=== PATIENT | male | born 1935 | race Caucasian/White ===

== ENCOUNTER 2018-01-21 02:50 | Inpatient (IN) | payer MEDICARE, OTHER ==
[~2018-01-21] VITALS: Ht 175.3 cm; Wt 121.6 kg
[2018-01-21] MEDS ORDERED: ONDANSETRON 2MG/ML, 2ML IVPush ONE (03:00)
[2018-01-21] MEDS ORDERED: MORPHINE SULFATE 4 MG/ML, 1ML IVPush PRN (03:00)
[2018-01-21] MEDS ORDERED: MORPHINE SULFATE 4 MG/ML, 1ML ONE ×2 (03:10→05:22)
[2018-01-21] MEDS ORDERED: ONDANSETRON 2MG/ML, 2ML ONE (03:10)
[2018-01-21 03:18] LABS: BASOPHILS # (AUTO) 0.01 x10^3/uL (0-0.1); BASOPHILS % (AUTO) 0 % (0-1); EOSINOPHILS # (AUTO) 0.06 x10^3/uL (0-0.4); EOSINOPHILS % (AUTO) 1 % (1-7); LYMPHOCYTES # (AUTO) 1.15 x10^3/uL (1-3.4); LYMPHOCYTES % (AUTO) 12 % (22-44); MD NO; MEAN CORPUSCULAR HGB CONC 33.7 g/dL (33.2-36.2); MONOCYTES # (AUTO) 0.64 x10^3/uL (0.2-0.8); MONOCYTES % (AUTO) 7 % (2-9); NEUTROPHILS # (AUTO) 7.76 x10^3/uL (1.8-6.8); NEUTROPHILS % (AUTO) 81 % (42-75); PLATELET COUNT 199 x10^3/uL (130-400); RED CELL DISTRIBUTION WIDTH 13.9 % (9.4-14.8)
[2018-01-21 03:28] LABS: ALBUMIN 3.5 g/dL (3.4-5.0); ANION GAP 10 mmol/L (5-15); CALCIUM 8.5 mg/dL (8.5-10.1); CHLORIDE 108 mmol/L (98-107); CREATININE 1.45 mg/dL (0.7-1.3)
[2018-01-21 03:40] LABS: TROPONIN I 0.067 ng/mL (0.000-0.045)
[2018-01-21] MEDS ORDERED: TERAZOSIN PO (05:21)
[2018-01-21] MEDS ORDERED: LASIX PO (05:21)
[2018-01-21] MEDS ORDERED: SIMVASTATIN PO (05:21)
[2018-01-21] MEDS ORDERED: ATENOLOL PO (05:21)
[2018-01-21] MEDS ORDERED: LOSARTAN PO (05:21)
[2018-01-21] MEDS ORDERED: ASPI-496 PO (05:21)
[2018-01-21] MEDS ORDERED: OXYcodone/APAP 5/325MG TABLET PO PRN (05:30)
[2018-01-21] MEDS ORDERED: ONDANSETRON ODT 4 MG PO PRN (05:30)
[2018-01-21] MEDS ORDERED: ACETAMINOPHEN 325 MG TABLET PO PRN (05:30)
[2018-01-21] MEDS ORDERED: MORPHINE SULFATE 4 MG/ML, 1ML IVPush ONE (05:30)
[2018-01-21] MEDS ORDERED: BISACODYL 10 MG SUPP PR PRN (05:30)
[2018-01-21] MEDS ORDERED: hydrALAzine 20 MG/ML, 1ML IVPush PRN (05:30)
[2018-01-21] MEDS ORDERED: morphine SULFATE 10 MG/ML, 1ML IVPush PRN (05:30)
[2018-01-21] MEDS ORDERED: PROMETHAZINE 25 MG/ML, 1ML IM PRN (05:30)
[2018-01-21] MEDS ORDERED: SODIUM CHLORIDE 0.9% 1,000 ML IV SCH (05:30)
[2018-01-21] MEDS ORDERED: LABETALOL 5MG/ML, 20ML IVPush PRN ×2 (05:30)
[2018-01-21] MEDS ORDERED: METHOCARBAMOL 750 MG TABLET PO PRN (05:30)
[2018-01-21] MEDS ORDERED: DOCUSATE 100 MG CAPSULE PO PRN (05:30)
[2018-01-21] MEDS ORDERED: ONDANSETRON 2MG/ML, 2ML IVPush PRN (05:30)
[2018-01-21] MEDS ORDERED: POLYETHYLENE GLYCOL 17 GM PACKET PO PRN (05:30)
[2018-01-21] MEDS ORDERED: METHOCARBAMOL 1,000 MG in DEXTROSE 5% 100 ML IV ONE (06:00)
[2018-01-21] MEDS: GABAPENTIN 100 MG CAPSULE PO SCH ×4 (06:00→21:16)
[2018-01-21] MEDS ORDERED: METOPROLOL 1 MG/ML, 5ML IVPush PRN (06:00)
[2018-01-21 06:16] VITALS: BP 168/76
[2018-01-21 06:25] LABS: FREE T4 (FREE THYROXINE) 0.88 ng/dL (0.76-1.46); HEMOGLOBIN A1C 5.9 % (4.2-6.3); THYROID STIMULATING HORMONE 2.93 mIU/L (0.358-3.740)
[2018-01-21 07:50] VITALS: BP 149/76
[2018-01-21 08:04] LABS: TROPONIN I 0.059 ng/mL (0.000-0.045)
[2018-01-21] MEDS: FAMOTIDINE 20 MG/2 ML IVPush SCH ×2 (11:02→21:16)
[2018-01-21 11:39] LABS: MICROSCOPIC NOT IND
[2018-01-21 11:48] LABS: CULTURE INDICATED? NO
[2018-01-21 12:54] VITALS: BP 139/70
[2018-01-21 14:40] LABS: TROPONIN I 0.065 ng/mL (0.000-0.045)
[2018-01-21 15:09] LABS: INTERNATIONAL NORMALIZED RATIO 1.07 (0.93-1.1)
[2018-01-21 20:16] VITALS: BP 119/63
[2018-01-22 03:48] VITALS: BP 122/62
[2018-01-22 05:43] LABS: BASOPHILS # (AUTO) 0.02 x10^3/uL (0-0.1); BASOPHILS % (AUTO) 0 % (0-1); EOSINOPHILS # (AUTO) 0.07 x10^3/uL (0-0.4); EOSINOPHILS % (AUTO) 1 % (1-7); LYMPHOCYTES % (AUTO) 7 % (22-44); MD NO; MEAN CORPUSCULAR HEMOGLOBIN 28.5 pg (27.5-34.5); MEAN CORPUSCULAR HGB CONC 33.1 g/dL (33.2-36.2); MEAN CORPUSCULAR VOLUME 86.2 fL (81-97); MEAN PLATELET VOLUME 9.1 fL (7.4-10.4); MONOCYTES # (AUTO) 0.57 x10^3/uL (0.2-0.8); MONOCYTES % (AUTO) 8 % (2-9); NEUTROPHILS # (AUTO) 5.64 x10^3/uL (1.8-6.8); NEUTROPHILS % (AUTO) 83 % (42-75); PLATELET COUNT 181 x10^3/uL (130-400); RED BLOOD COUNT 3.92 x10^6/uL (4.38-5.82); RED CELL DISTRIBUTION WIDTH 14.1 % (9.4-14.8)
[2018-01-22 05:49] LABS: ANION GAP 8 mmol/L (5-15); CALCIUM 8.1 mg/dL (8.5-10.1); CHLORIDE 108 mmol/L (98-107)
[2018-01-22] MEDS: GABAPENTIN 100 MG CAPSULE PO SCH ×4 (05:49→21:24)
[2018-01-22 05:55] LABS: ALANINE AMINOTRANSFERASE 18 U/L (12-78); ALKALINE PHOSPHATASE 55 U/L (45-117); BILIRUBIN,TOTAL 0.7 mg/dL (0.2-1.0); CHOL/HDL RATIO 2.7; CHOLESTEROL, TOTAL 115 mg/dL (140-239); CREATININE 1.14 mg/dL (0.7-1.3); HDL CHOL % 37 % (26-37); HDL CHOLESTEROL (DIRECT) 42 mg/dL (40-60); LDL CHOLESTEROL,CALCULATED 46 mg/dL (54-169); LDL/HDL RATIO 1.1 (0.5-3.0); TOTAL PROTEIN 6.8 g/dL (6.4-8.2); TRIGLYCERIDES 133 mg/dL (50-200); VLDL CHOLESTEROL 27 mg/dL (0-25)
[2018-01-22 06:58] VITALS: BP 126/64
[2018-01-22] MEDS: FUROSEMIDE 20 MG TABLET PO SCH (09:15)
[2018-01-22] MEDS: ATENOLOL 25 MG TABLET PO SCH (09:16)
[2018-01-22] MEDS: FAMOTIDINE 20 MG/2 ML IVPush SCH ×2 (09:16→21:25)
[2018-01-22 14:14] VITALS: BP 114/58
[2018-01-22 19:06] VITALS: BP 133/60
[2018-01-22 21:23] VITALS: BP 130/65
[2018-01-22] MEDS: TERAZOSIN 5MG CAPSULE PO SCH (21:24)
[2018-01-22] MEDS: LOSARTAN 50MG TABLET PO SCH (21:24)
[2018-01-22] MEDS: SIMVASTATIN 40 MG TABLET PO SCH (21:25)
[2018-01-23 00:52] VITALS: BP 132/67
[2018-01-23 05:26] VITALS: BP 157/67
[2018-01-23] MEDS: GABAPENTIN 100 MG CAPSULE PO SCH ×4 (05:30→20:23)
[2018-01-23] MEDS: ATENOLOL 25 MG TABLET PO SCH (05:30)
[2018-01-23 07:52] VITALS: BP 113/52
[2018-01-23] MEDS: DOCUSATE 100 MG CAPSULE PO SCH (09:20)
[2018-01-23] MEDS: FUROSEMIDE 20 MG TABLET PO SCH (09:20)
[2018-01-23] MEDS ORDERED: FAMOTIDINE 20 MG TABLET ONE (09:26)
[2018-01-23] MEDS: FAMOTIDINE 20 MG/2 ML IVPush SCH ×2 (09:26→20:24)
[2018-01-23 12:48] VITALS: BP 104/46
[2018-01-23 19:47] VITALS: BP 110/56
[2018-01-23] MEDS: TERAZOSIN 5MG CAPSULE PO SCH (20:24)
[2018-01-23] MEDS: LOSARTAN 50MG TABLET PO SCH (20:24)
[2018-01-23] MEDS: SIMVASTATIN 40 MG TABLET PO SCH (20:24)
[2018-01-24 02:04] VITALS: BP 120/56
[2018-01-24] MEDS: GABAPENTIN 100 MG CAPSULE PO SCH ×4 (05:45→20:22)
[2018-01-24] MEDS: ATENOLOL 25 MG TABLET PO SCH (05:45)
[2018-01-24 06:59] VITALS: BP 105/60
[2018-01-24] MEDS: DOCUSATE 100 MG CAPSULE PO SCH (08:56)
[2018-01-24] MEDS: FUROSEMIDE 20 MG TABLET PO SCH (08:56)
[2018-01-24] MEDS: DIAZEPAM 5 MG TABLET PO PRN ×2 (08:56→15:38)
[2018-01-24 13:37] VITALS: BP 123/67
[2018-01-24 19:33] VITALS: BP 120/57
[2018-01-24] MEDS: TERAZOSIN 5MG CAPSULE PO SCH (20:22)
[2018-01-24] MEDS: LOSARTAN 50MG TABLET PO SCH (20:22)
[2018-01-24] MEDS: SIMVASTATIN 40 MG TABLET PO SCH (20:23)
[2018-01-25 02:04] VITALS: BP 106/64
[2018-01-25] MEDS: GABAPENTIN 100 MG CAPSULE PO SCH ×4 (06:00→21:00)
[2018-01-25] MEDS: ATENOLOL 25 MG TABLET PO SCH ×2 (06:00→13:46)
[2018-01-25 07:45] VITALS: BP 123/60
[2018-01-25] MEDS: DOCUSATE 100 MG CAPSULE PO SCH (08:41)
[2018-01-25] MEDS: FUROSEMIDE 20 MG TABLET PO SCH (08:42)
[2018-01-25] MEDS ORDERED: LABETALOL 5MG/ML, 20ML ONE (10:48)
[2018-01-25] MEDS ORDERED: SUCCINYLCHOLINE 20 MG/ML, 10ML ONE (10:48)
[2018-01-25] MEDS ORDERED: METOPROLOL 1 MG/ML, 5ML ONE (10:48)
[2018-01-25] MEDS ORDERED: PROPOFOL 10 MG/ML, 20ML ONE (10:48)
[2018-01-25] MEDS ORDERED: ONDANSETRON 2MG/ML, 2ML ONE (10:48)
[2018-01-25] MEDS ORDERED: PROPOFOL 10 MG/ML, 50ML ONE (10:48)
[2018-01-25] MEDS ORDERED: hydrALAzine 20 MG/ML, 1ML ONE (10:48)
[2018-01-25] MEDS ORDERED: DEXAMETHASONE 4 MG/ML, 5ML ONE (10:48)
[2018-01-25 13:40] VITALS: BP 143/66
[2018-01-25] MEDS ORDERED: BACITRACIN 50,000 UNIT ONE (15:09)
[2018-01-25] MEDS ORDERED: BUPIVACAINE/PF-EPI 0.5% 1:200K ONE (15:09)
[2018-01-25] MEDS ORDERED: THROMBIN 20,000 UNIT VIAL TP ONE (15:09)
[2018-01-25] MEDS ORDERED: FENTANYL PF 250 MCG/5ML ONE ×2 (15:20→20:15)
[2018-01-25] MEDS ORDERED: TRANEXAMIC ACID 100 MG/ML, 10ML ONE ×2 (15:24)
[2018-01-25] MEDS ORDERED: VANCOMYCIN 1,000 MG ONE (15:24)
[2018-01-25] MEDS ORDERED: CLINDAMYCIN 150 MG/ML, 6ML ONE (17:43)
[2018-01-25] MEDS ORDERED: BUPIVACAINE/PF-EPI 0.5% 1:200K INFIL ONE (18:16)
[2018-01-25] MEDS: LOSARTAN 50MG TABLET PO SCH (21:00)
[2018-01-25] MEDS: TERAZOSIN 5MG CAPSULE PO SCH (21:00)
[2018-01-25] MEDS: SIMVASTATIN 40 MG TABLET PO SCH (21:00)
[2018-01-25] MEDS ORDERED: ALBUTEROL SULFATE 2.5 MG/3 ML NPPB PRN (21:30)
[2018-01-25] MEDS ORDERED: HYDROmorphone 1 MG/ML, 1ML IV PRN (21:30)
[2018-01-25] MEDS ORDERED: hydrALAzine 20 MG/ML, 1ML IV PRN (21:30)
[2018-01-25] MEDS ORDERED: HALOPERIDOL 5 MG/ML IV PRN (21:30)
[2018-01-25] MEDS ORDERED: LABETALOL 5MG/ML, 20ML IV PRN (21:30)
[2018-01-25] MEDS ORDERED: FENTANYL PF 100 MCG/2ML IV PRN (21:30)
[2018-01-25] MEDS ORDERED: FENTANYL PF 100 MCG/2ML ONE (22:28)
[2018-01-25] MEDS ORDERED: ACETAMINOPHEN 650 MG/20.3 ML UDC ONE (22:28)
[2018-01-25] MEDS ORDERED: OXYcodone 5 MG/5 ML ORAL.SOL UDC ONE (22:29)
[2018-01-25] MEDS: OXYcodone 5 MG/5 ML ORAL.SOL UDC PO PRN ×2 (23:25→23:54)
[2018-01-25] MEDS: ACETAMINOPHEN 325 MG TABLET PO PRN ×2 (23:41→23:55)
[2018-01-26] MEDS ORDERED: METHOCARBAMOL 1,000 MG in DEXTROSE 5% 100 ML IV ONE (01:30)
[2018-01-26] MEDS ORDERED: VANCOMYCIN PER PHARMACY MC PRN (01:30)
[2018-01-26] MEDS ORDERED: ACETAMINOPHEN 325 MG TABLET PO PRN (01:30)
[2018-01-26] MEDS ORDERED: PROMETHAZINE 25 MG/ML, 1ML IM PRN (01:30)
[2018-01-26] MEDS ORDERED: ACETAMINOPHEN 650 MG SUPP PR PRN (01:30)
[2018-01-26] MEDS ORDERED: KETOROLAC 30 MG/1 ML IV PRN (01:30)
[2018-01-26] MEDS ORDERED: DIPHENHYDRAMINE 50 MG/ML, 1ML IVPush PRN (01:30)
[2018-01-26] MEDS ORDERED: MAGNESIUM HYDROXIDE 8%, 30ML UDC PO PRN (01:30)
[2018-01-26] MEDS ORDERED: ONDANSETRON 2MG/ML, 2ML IV PRN (01:30)
[2018-01-26] MEDS ORDERED: PHARMACOKINETIC MONITORING MC PRN (01:30)
[2018-01-26] MEDS ORDERED: BISACODYL 10 MG SUPP PR PRN (01:30)
[2018-01-26] MEDS ORDERED: MEPERIDINE PCA 300 MG/30 ML IV PRN (01:30)
[2018-01-26] MEDS ORDERED: PHARMACOKINETIC CONSULTATION MC ONE (01:30)
[2018-01-26] MEDS ORDERED: LABETALOL 5MG/ML, 20ML IV PRN (01:30)
[2018-01-26 01:51] VITALS: BP 144/61
[2018-01-26] MEDS ORDERED: SODIUM CHLORIDE 0.9% 1,000ML IVBOLUS PRN (02:00)
[2018-01-26] MEDS: D5%-0.9% NACL+KCL 20MEQ 1,000 ML IV SCH ×2 (02:24→12:46)
[2018-01-26] MEDS: CEFAZOLIN PMX 1GM/50ML 50 ML IVPB SCH ×2 (02:24→08:52)
[2018-01-26] MEDS: VANCOMYCIN 2,000 MG in SODIUM CHLORIDE 0.9% 500 ML IV SCH (03:15)
[2018-01-26 05:14] VITALS: BP 130/56
[2018-01-26] MEDS: GABAPENTIN 100 MG CAPSULE PO SCH ×4 (06:00→21:00)
[2018-01-26 08:00] VITALS: BP 130/56
[2018-01-26] MEDS ORDERED: ACETAMINOPHEN 500 MG TABLET PO PRN (08:00)
[2018-01-26] MEDS: DOCUSATE 100 MG CAPSULE PO SCH (08:52)
[2018-01-26] MEDS: SENNA/DOCUSATE TABLET PO SCH (08:52)
[2018-01-26] MEDS: ASPIRIN 81 MG TABLET CHEW PO SCH (08:52)
[2018-01-26] MEDS: FUROSEMIDE 20 MG TABLET PO SCH (08:53)
[2018-01-26] MEDS ORDERED: ARTIFICIAL TEARS 15 DROP/ML BOTTLE EACHEYE PRN (12:00)
[2018-01-26] MEDS: METHOCARBAMOL 750 MG in DEXTROSE 5% 100 ML IV SCH ×2 (15:41→23:31)
[2018-01-26] MEDS ORDERED: OXYcodone IR 5MG TABLET PO PRN (16:30)
[2018-01-26 16:40] LABS: BASOPHILS % (AUTO) 0 % (0-1); EOSINOPHILS % (AUTO) 0 % (1-7); LYMPHOCYTES # (AUTO) 0.39 x10^3/uL (1-3.4); LYMPHOCYTES % (AUTO) 4 % (22-44); MD NO; MEAN CORPUSCULAR HGB CONC 33.3 g/dL (33.2-36.2); MEAN PLATELET VOLUME 7.9 fL (7.4-10.4); MONOCYTES % (AUTO) 8 % (2-9); NEUTROPHILS # (AUTO) 9.38 x10^3/uL (1.8-6.8); NEUTROPHILS % (AUTO) 88 % (42-75); PLATELET COUNT 217 x10^3/uL (130-400); RED BLOOD COUNT 3.46 x10^6/uL (4.38-5.82); RED CELL DISTRIBUTION WIDTH 13.9 % (9.4-14.8)
[2018-01-26 17:03] VITALS: BP 139/67
[2018-01-26] MEDS: LOSARTAN 50MG TABLET PO SCH (20:59)
[2018-01-26] MEDS: TERAZOSIN 5MG CAPSULE PO SCH (20:59)
[2018-01-26] MEDS: SIMVASTATIN 40 MG TABLET PO SCH (21:00)
[2018-01-26] MEDS ORDERED: ZOLPIDEM 5MG TABLET PO PRN (21:00)
[2018-01-26 22:17] VITALS: BP 128/84
[2018-01-26] MEDS: OXYcodone IR 5MG TABLET PO PRN (22:51)
[2018-01-27] MEDS: D5%-0.9% NACL+KCL 20MEQ 1,000 ML IV SCH ×2 (00:35→14:50)
[2018-01-27] MEDS: VANCOMYCIN 2,000 MG in SODIUM CHLORIDE 0.9% 500 ML IV SCH (03:05)
[2018-01-27 03:47] VITALS: BP 100/53
[2018-01-27 05:54] LABS: ALANINE AMINOTRANSFERASE 13 U/L (12-78); ALBUMIN 2.2 g/dL (3.4-5.0); ANION GAP 6 mmol/L (5-15); CALCIUM 7.7 mg/dL (8.5-10.1); CHLORIDE 110 mmol/L (98-107); CREATININE 1.47 mg/dL (0.7-1.3)
[2018-01-27 05:58] LABS: ALKALINE PHOSPHATASE 49 U/L (45-117); BILIRUBIN,TOTAL 0.5 mg/dL (0.2-1.0); TOTAL PROTEIN 6.1 g/dL (6.4-8.2)
[2018-01-27 06:18] VITALS: BP 130/62
[2018-01-27] MEDS: ATENOLOL 25 MG TABLET PO SCH (06:18)
[2018-01-27] MEDS: GABAPENTIN 100 MG CAPSULE PO SCH ×4 (06:18→20:33)
[2018-01-27 06:22] LABS: MD YES; MEAN CORPUSCULAR HEMOGLOBIN 28.9 pg (27.5-34.5); MEAN CORPUSCULAR VOLUME 87.7 fL (81-97); MEAN PLATELET VOLUME 8.8 fL (7.4-10.4); PLATELET COUNT 187 x10^3/uL (130-400); RED BLOOD COUNT 3.32 x10^6/uL (4.38-5.82); RED CELL DISTRIBUTION WIDTH 14.4 % (9.4-14.8)
[2018-01-27 06:25] LABS: LYMPHS% (MANUAL) 6 % (22-44); MONOS#(MANUAL) 0.58 x10^3/uL (0.3-2.7); MONOS% (MANUAL) 7 % (2-9); SEG#(MANUAL) 7.22 x10^3/uL (1.8-6.8); SEGS% (MANUAL) 87 % (42-75)
[2018-01-27 06:26] LABS: <PLATELET ESTIMATE> ADEQUATE; <PLT MORPHOLOGY> NORMAL PLT MORPH; <RBC MORPHOLOGY> NORMAL
[2018-01-27 07:00] VITALS: BP 118/53
[2018-01-27] MEDS: METHOCARBAMOL 750 MG in DEXTROSE 5% 100 ML IV SCH ×2 (08:04→18:11)
[2018-01-27] MEDS: SENNA/DOCUSATE TABLET PO SCH (08:08)
[2018-01-27] MEDS: FUROSEMIDE 20 MG TABLET PO SCH (08:08)
[2018-01-27] MEDS: ASPIRIN 81 MG TABLET CHEW PO SCH (08:09)
[2018-01-27] MEDS: DOCUSATE 100 MG CAPSULE PO SCH (08:09)
[2018-01-27] MEDS: OXYcodone IR 5MG TABLET PO PRN ×2 (12:53→20:58)
[2018-01-27 14:31] VITALS: BP 109/54
[2018-01-27 18:27] VITALS: BP 124/55
[2018-01-27] MEDS: TERAZOSIN 5MG CAPSULE PO SCH (20:33)
[2018-01-27] MEDS: SIMVASTATIN 40 MG TABLET PO SCH (20:33)
[2018-01-27] MEDS: LOSARTAN 50MG TABLET PO SCH (21:00)
[2018-01-28] MEDS: METHOCARBAMOL 750 MG in DEXTROSE 5% 100 ML IV SCH ×2 (02:02→09:47)
[2018-01-28 02:47] VITALS: BP 124/54
[2018-01-28] MEDS: VANCOMYCIN 2,000 MG in SODIUM CHLORIDE 0.9% 500 ML IV SCH (03:04)
[2018-01-28] MEDS: D5%-0.9% NACL+KCL 20MEQ 1,000 ML IV SCH ×2 (03:30→10:19)
[2018-01-28] MEDS: GABAPENTIN 100 MG CAPSULE PO SCH ×4 (05:49→20:45)
[2018-01-28] MEDS: ATENOLOL 25 MG TABLET PO SCH (05:49)
[2018-01-28 05:50] VITALS: BP 124/64
[2018-01-28 06:06] LABS: BASOPHILS # (AUTO) 0.04 x10^3/uL (0-0.1); BASOPHILS % (AUTO) 0 % (0-1); EOSINOPHILS # (AUTO) 0.32 x10^3/uL (0-0.4); EOSINOPHILS % (AUTO) 3 % (1-7); LYMPHOCYTES # (AUTO) 1.12 x10^3/uL (1-3.4); LYMPHOCYTES % (AUTO) 10 % (22-44); MD SCAN; MEAN CORPUSCULAR HEMOGLOBIN 29.4 pg (27.5-34.5); MEAN CORPUSCULAR HGB CONC 33.5 g/dL (33.2-36.2); MEAN CORPUSCULAR VOLUME 87.8 fL (81-97); MEAN PLATELET VOLUME 9.3 fL (7.4-10.4); MONOCYTES # (AUTO) 0.93 x10^3/uL (0.2-0.8); MONOCYTES % (AUTO) 8 % (2-9); NEUTROPHILS # (AUTO) 9.04 x10^3/uL (1.8-6.8); NEUTROPHILS % (AUTO) 79 % (42-75); PLATELET COUNT 215 x10^3/uL (130-400); RED BLOOD COUNT 3.15 x10^6/uL (4.38-5.82); RED CELL DISTRIBUTION WIDTH 14.7 % (9.4-14.8)
[2018-01-28 07:03] VITALS: BP 110/56
[2018-01-28] MEDS: OXYcodone IR 5MG TABLET PO PRN ×2 (08:46→13:27)
[2018-01-28] MEDS: DOCUSATE 100 MG CAPSULE PO SCH (08:47)
[2018-01-28] MEDS: SENNA/DOCUSATE TABLET PO SCH (08:48)
[2018-01-28] MEDS: ASPIRIN 81 MG TABLET CHEW PO SCH (08:49)
[2018-01-28] MEDS: FUROSEMIDE 20 MG TABLET PO SCH (08:50)
[2018-01-28] MEDS: METHOCARBAMOL 750 MG TABLET PO SCH ×2 (08:50→16:23)
[2018-01-28 11:10] VITALS: BP 134/56
[2018-01-28] MEDS: morphine SULFATE 10 MG/ML, 1ML IV PRN (11:21)
[2018-01-28] MEDS ORDERED: FUROSEMIDE 20 MG/2 ML IV ONE (12:30)
[2018-01-28 13:44] VITALS: BP 146/67
[2018-01-28 20:05] VITALS: BP 134/63
[2018-01-28] MEDS: TERAZOSIN 5MG CAPSULE PO SCH (20:46)
[2018-01-28] MEDS: LOSARTAN 50MG TABLET PO SCH (20:46)
[2018-01-28] MEDS: SIMVASTATIN 40 MG TABLET PO SCH (20:47)
[2018-01-29 01:13] VITALS: BP 149/78
[2018-01-29] MEDS: METHOCARBAMOL 750 MG TABLET PO SCH ×3 (01:30→16:03)
[2018-01-29] MEDS: VANCOMYCIN 2,000 MG in SODIUM CHLORIDE 0.9% 500 ML IV SCH (03:03)
[2018-01-29 03:11] LABS: BASOPHILS # (AUTO) 0.03 x10^3/uL (0-0.1); BASOPHILS % (AUTO) 0 % (0-1); EOSINOPHILS # (AUTO) 0.14 x10^3/uL (0-0.4); EOSINOPHILS % (AUTO) 2 % (1-7); LYMPHOCYTES # (AUTO) 0.96 x10^3/uL (1-3.4); LYMPHOCYTES % (AUTO) 13 % (22-44); MD NO; MEAN CORPUSCULAR HEMOGLOBIN 28.8 pg (27.5-34.5); MEAN CORPUSCULAR HGB CONC 33.2 g/dL (33.2-36.2); MEAN CORPUSCULAR VOLUME 86.7 fL (81-97); MEAN PLATELET VOLUME 8.6 fL (7.4-10.4); MONOCYTES # (AUTO) 0.64 x10^3/uL (0.2-0.8); MONOCYTES % (AUTO) 8 % (2-9); NEUTROPHILS # (AUTO) 5.83 x10^3/uL (1.8-6.8); NEUTROPHILS % (AUTO) 77 % (42-75); PLATELET COUNT 237 x10^3/uL (130-400); RED BLOOD COUNT 3.26 x10^6/uL (4.38-5.82)
[2018-01-29 03:19] LABS: ALBUMIN 2.1 g/dL (3.4-5.0); ANION GAP 5 mmol/L (5-15); CALCIUM 7.9 mg/dL (8.5-10.1); CHLORIDE 107 mmol/L (98-107); CREATININE 0.93 mg/dL (0.7-1.3)
[2018-01-29] MEDS: morphine SULFATE 10 MG/ML, 1ML IV PRN (05:03)
[2018-01-29] MEDS: GABAPENTIN 100 MG CAPSULE PO SCH ×3 (05:19→16:03)
[2018-01-29] MEDS: ATENOLOL 25 MG TABLET PO SCH (05:19)
[2018-01-29 07:16] VITALS: BP 147/86
[2018-01-29] MEDS: DOCUSATE 100 MG CAPSULE PO SCH (08:12)
[2018-01-29] MEDS: ASPIRIN 81 MG TABLET CHEW PO SCH (08:12)
[2018-01-29] MEDS: SENNA/DOCUSATE TABLET PO SCH (08:12)
[2018-01-29] MEDS ORDERED: FUROSEMIDE 40 MG TABLET PO SCH (09:00)
[2018-01-29] MEDS: OXYcodone IR 5MG TABLET PO PRN (11:13)
[2018-01-29 13:38] VITALS: BP 111/63
[2018-01-29] MEDS ORDERED: GABA-826 PO (14:52)
[2018-01-29] MEDS ORDERED: METH750T2 PO (14:52)
[2018-01-30] MEDS ORDERED: VANCOMYCIN 2,100 MG in SODIUM CHLORIDE 0.9% 500 ML IV SCH (15:00)
== END 2018-01-29 18:25 | disposition short-term general hospital (02) | DRG 459 ==
LOC: ED 04:43 → EDIP 04:48 → ED 05:03 → 5SO 06:04 → 4NOR 01-23 18:24
PROVIDERS: ADMIT Internal Medicine; ATTEND Internal Medicine
PROC: 0RGA071 Fusion of Thoracolumbar Vertebral Joint with Autologous Tissue Substitute, Posterior Approach, Posterior Column, Open Approach (ICD-10-PCS; 2018-01-25)
PROC: 4A11X4G Monitoring of Peripheral Nervous Electrical Activity, Intraoperative, External Approach (ICD-10-PCS; 2018-01-25)
PROC: 0RG7071 Fusion of 2 to 7 Thoracic Vertebral Joints with Autologous Tissue Substitute, Posterior Approach, Posterior Column, Open Approach (ICD-10-PCS; principal; 2018-01-25 16:00)
DX: S22.078A Other fracture of T9-T10 vertebra, initial encounter for closed fracture (principal); N17.0 Acute kidney failure with tubular necrosis; I50.32 Chronic diastolic (congestive) heart failure; I24.8 Other forms of acute ischemic heart disease; S22.088A Other fracture of T11-T12 vertebra, initial encounter for closed fracture; D64.9 Anemia, unspecified; E66.01 Morbid (severe) obesity due to excess calories; E78.00 Pure hypercholesterolemia, unspecified; F41.9 Anxiety disorder, unspecified; M48.14 Ankylosing hyperostosis [Forestier], thoracic region; I11.0 Hypertensive heart disease with heart failure; K59.00 Constipation, unspecified; M54.14 Radiculopathy, thoracic region; M48.04 Spinal stenosis, thoracic region; N40.1 Benign prostatic hyperplasia with lower urinary tract symptoms; R33.8 Other retention of urine; W01.198A Fall on same level from slipping, tripping and stumbling with subsequent striking against other object, initial encounter; Y93.01 Activity, walking, marching and hiking; L40.9 Psoriasis, unspecified; Z96.643 Presence of artificial hip joint, bilateral; Z96.659 Presence of unspecified artificial knee joint; Z88.0 Allergy status to penicillin; Y93.E1 Activity, personal bathing and showering; Z79.82 Long term (current) use of aspirin; Y92.002 Bathroom of unspecified non-institutional (private) residence as the place of occurrence of the external cause; Z79.899 Other long term (current) drug therapy
CPT/HCPCS: 36415; 71045; 71250; 72072; 72128; 72131; 72146; 72148; 80048; 80053; 80061; 80202; 81003; 82040; 83036; 83735; 83880; 84439; 84443; 84484; 85025; 85610; 85730; 86850; 86900; 93005; 96374; 96375; 96376; 99285; C1713; C8929; G0378; J0690; J1100; J1885; J2270; J2405; J2704; J3010; J3370; Q9957; C1760; C1762; C1763; C9362; J0330; J0360; J1940; J2800; J3480; J7030; J7040; S0028